=== PATIENT | female | born 1995 | race Two or more races ===

== ENCOUNTER 2021-08-18 08:05 | Emergency (ER) | payer OTHER ==
[~2021-08-18] VITALS: Ht 170.2 cm; Wt 84.4 kg
== END 2021-08-18 13:39 | disposition home or self-care (01) ==
LOC: ER 08:05
DX: T83.83XA Hemorrhage due to genitourinary prosthetic devices, implants and grafts, initial encounter (principal); N93.9 Abnormal uterine and vaginal bleeding, unspecified; Z91.013 Allergy to seafood